=== PATIENT | female | born 1995 | race Caucasian/White ===

== ENCOUNTER 2024-06-01 20:46 | Emergency (ER) | payer OTHER ==
[~2024-06-01] VITALS: Ht 152.4 cm; Wt 70.3 kg
[2024-06-01] MEDS ORDERED: TRAMADOL HCL50 MG PO (21:57)
[2024-06-01] MEDS ORDERED: TRAMADOL HCL 50 MG HOME.PACK PO ONE (22:00)
[2024-06-01] MEDS ORDERED: IBUPROFEN800 MG (22:17)
[2024-06-01] MEDS ORDERED: GABAPENTIN300 MG (22:17)
[2024-06-01 22:25] VITALS: BP 99/56
== END 2024-06-01 22:28 | disposition home or self-care (01) ==
LOC: ED 20:46
DX: Z30.46 Encounter for surveillance of implantable subdermal contraceptive (principal); Z79.899 Other long term (current) drug therapy
CPT/HCPCS: 73060; 99283; A9270